=== PATIENT | female | born 1980 | race Asian ===

== ENCOUNTER 2018-11-18 06:13 | Inpatient (IN) | payer BC ==
[~2018-11-18] VITALS: Ht 160 cm; Wt 71.7 kg
[2018-11-18] MEDS ORDERED: LR 1,000 ML IV SCH ×4 (06:22→20:13)
[2018-11-18] MEDS ORDERED: CEFAZOLIN 2 GM IVPB PREMIX 50 ML IV ONE (06:30)
[2018-11-18 06:36] VITALS: BP_SYST 112
[2018-11-18 07:27] LABS: BASOPHILS # (AUTO) 0.1 K/uL (0.0-0.2); BASOPHILS % (AUTO) 0.8 % (0.0-2.0); EOSINOPHILS # (AUTO) 0.1 K/uL (0.0-0.4); HEMATOCRIT 34.6 % (36-48); HEMOGLOBIN 11.6 g/dL (12.0-16.0); LYMPHOCYTES # (AUTO) 2.1 K/uL (1.0-5.5); LYMPHOCYTES % (AUTO) 28.5 % (20.5-51.5); MEAN CORPUSCULAR HEMOGLOBIN 30 pg (27-31); MEAN CORPUSCULAR HGB CONC 34 % (32-36); MEAN CORPUSCULAR VOLUME 89 fL (79.0-98.0); MONOCYTES # (AUTO) 0.6 K/uL (0.0-1.0); MONOCYTES % (AUTO) 7.9 % (1.7-9.3); NEUTROPHILS # (AUTO) 4.4 K/uL (1.8-7.7); NEUTROPHILS % (AUTO) 60.8 % (40.0-70.0); PLATELET COUNT (AUTO) 237 K/uL (130-430); RED BLOOD CELL COUNT(AUTO) 3.89 MIL/uL (4.2-6.2); RED CELL DISTRIBUTION WIDTH 12.6 % (9.0-15.0); WHITE BLOOD COUNT (AUTO) 7.3 K/uL (4.8-10.8)
[2018-11-18 08:15] LABS: BILIRUBIN,URINE NEGATIVE (NEGATIVE); BLOOD, URINE NEGATIVE (NEGATIVE); CLARITY/URINE CLEAR (CLEAR); COLOR,URINE YELLOW (YELLOW); GLUCOSE,URINE NEGATIVE (NEGATIVE); KETONES,URINE TRACE (NEGATIVE); LEUKOCYTE ESTERASE ,URINE NEGATIVE (NEGATIVE); NITRITE, URINE NEGATIVE (NEGATIVE); PH,URINE 6.5 (5.0-8.0); PROTEIN URINE NEGATIVE (NEGATIVE); UROBILINOGEN,URINE 0.2 (0.2-1.0)
[2018-11-18] MEDS ORDERED: MEPERIDINE HCL/PF 50 MG/ML AMP IVP PRN ×2 (08:30)
[2018-11-18] MEDS ORDERED: MORPHINE SULFATE 10MG/10ML PF AMP SP SCH (08:30)
[2018-11-18] MEDS ORDERED: MEPERIDINE HCL/PF 25 MG/ML DISP.SYRIN IVP PRN (08:30)
[2018-11-18] MEDS ORDERED: NALOXONE HCL 0.4 MG/ML AMP (NARCAN) IVP PRN (08:30)
[2018-11-18] MEDS ORDERED: ONDANSETRON HCL 4 MG/2 ML VIAL IVP PRN (08:30)
[2018-11-18] MEDS ORDERED: METOCLOPRAMIDE HCL 10 MG/2 ML VIAL IVP PRN (08:30)
[2018-11-18] MEDS ORDERED: LR 1,000 ML IV.SOLN IV ONE (08:55)
[2018-11-18] MEDS ORDERED: OXYTOCIN 10 UNIT/ML VIAL ONE ×3 (08:55→20:03)
[2018-11-18] MEDS ORDERED: NS IRRIG SOLN 1000 ML IR ONE (08:55)
[2018-11-18] MEDS ORDERED: ePHEDrine sulfate 50 MG/ML VIAL ONE (08:55)
[2018-11-18] MEDS ORDERED: MIDAZOLAM HCL 5 MG/ML VIAL (VERSED) IV ONE (08:55)
[2018-11-18] MEDS ORDERED: OXYTOCIN/0.9 % SODIUM CHLORIDE 1,000 ML IV ONE ×3 (08:56→21:00)
[2018-11-18] MEDS ORDERED: MEASLES,MUMPS&RUBELLA VACC/PF 12500 UNIT/0.5 ML VIAL SUBQ PRN (09:00)
[2018-11-18] MEDS ORDERED: DIPH-TET-PERTUS Vaccine 0.5 ML VIAL (ADACEL) I.M. PRN (09:00)
[2018-11-18] MEDS ORDERED: ANUSOL 1 EA SUPP.RECT (PREPARATION H) RC PRN (09:00)
[2018-11-18] MEDS ORDERED: BISACODYL 10 MG/SUPPOSITORY RC PRN (09:00)
[2018-11-18] MEDS ORDERED: LANOLIN 7 GM OINT. TP PRN ×2 (09:00→20:15)
[2018-11-18] MEDS ORDERED: RHO(D) IMMUNE GLOBULIN/MALTOSE 1500 UNITS/1.3 ML (WINHRO) IM PRN (09:00)
[2018-11-18 09:29] VITALS: BP_SYST 105
[2018-11-18] MEDS ORDERED: HYDROcodone/ACETAMIN 5-325 MG TAB (NORCO/ VICODIN) PO PRN (12:00)
[2018-11-18] MEDS: CEFAZOLIN 1 GM IVPB PREMIX 50 ML IV SCH ×3 (12:11→23:53)
[2018-11-18] MEDS ORDERED: TEMAZEPAM 15 MG CAPSULE PO PRN (21:00)
[2018-11-18] MEDS: SIMETHICONE 80 MG TAB.CHEW PO PRN (23:55)
[2018-11-19] MEDS: IBUPROFEN 600 MG TABLET PO SCH (00:15)
[2018-11-19] MEDS: OXYCODONE/ACETAMINOPHEN 5-325 TABLET PO PRN ×4 (04:16→22:55)
[2018-11-19] MEDS: SIMETHICONE 80 MG TAB.CHEW PO PRN ×3 (04:16→22:55)
[2018-11-19] MEDS ORDERED: OXYTOCIN 10 UNIT/ML VIAL ONE (04:16)
[2018-11-19 06:58] LABS: BASOPHILS % (AUTO) 0.3 % (0.0-2.0); EOSINOPHILS # (AUTO) 0.2 K/uL (0.0-0.4); HEMATOCRIT 28.1 % (36-48); HEMOGLOBIN 9.5 g/dL (12.0-16.0); LYMPHOCYTES # (AUTO) 1.8 K/uL (1.0-5.5); LYMPHOCYTES % (AUTO) 15.3 % (20.5-51.5); MEAN CORPUSCULAR HEMOGLOBIN 30 pg (27-31); MEAN CORPUSCULAR HGB CONC 34 % (32-36); MEAN CORPUSCULAR VOLUME 88 fL (79.0-98.0); MONOCYTES % (AUTO) 8.4 % (1.7-9.3); NEUTROPHILS # (AUTO) 8.9 K/uL (1.8-7.7); PLATELET COUNT (AUTO) 211 K/uL (130-430); RED BLOOD CELL COUNT(AUTO) 3.19 MIL/uL (4.2-6.2); RED CELL DISTRIBUTION WIDTH 12.4 % (9.0-15.0); WHITE BLOOD COUNT (AUTO) 11.9 K/uL (4.8-10.8)
[2018-11-19] MEDS: SENNOSIDES/DOCUSATE SODIUM 1 TAB TABLET(SENOKOT-S) PO PRN ×2 (11:35→22:55)
[2018-11-19] MEDS: DOCUSATE SODIUM 100 MG CAPSULE PO PRN ×2 (11:36→22:55)
[2018-11-20] MEDS: OXYCODONE/ACETAMINOPHEN 5-325 TABLET PO PRN ×2 (04:49→15:25)
[2018-11-20] MEDS: SIMETHICONE 80 MG TAB.CHEW PO PRN (04:50)
[2018-11-20] MEDS ORDERED: HYDROCORTISONE 0.5%, 28.35 GM TOPICAL CREAM TP PRN (07:30)
[2018-11-20] MEDS: IBUPROFEN 600 MG TABLET PO SCH (12:11)
[2018-11-21] MEDS: IBUPROFEN 600 MG TABLET PO SCH ×2 (00:04→06:29)
[2018-11-21] MEDS: DOCUSATE SODIUM 100 MG CAPSULE PO PRN (00:04)
[2018-11-21] MEDS: OXYCODONE/ACETAMINOPHEN 5-325 TABLET PO PRN (07:52)
== END 2018-11-21 11:40 | disposition home or self-care (01) | DRG 785 ==
LOC: SPU 06:13
PROVIDERS: ADMIT Specialist; ATTEND Specialist
PROC: 0UT70ZZ Resection of Bilateral Fallopian Tubes, Open Approach (ICD-10-PCS; 2018-11-18)
PROC: 10D00Z1 Extraction of Products of Conception, Low, Open Approach (ICD-10-PCS; principal; 2018-11-18 07:30)
DX: O34.211 Maternal care for low transverse scar from previous cesarean delivery (principal); O62.2 Other uterine inertia; Z37.0 Single live birth; Z3A.38 38 weeks gestation of pregnancy; Z30.2 Encounter for sterilization
CPT/HCPCS: 36415; 81003; 85025; 86592; 86886; 86900; 86901; 88302; 90656; 90715; A4618; J0690; J2250; J2274; J2590; J7120

== ENCOUNTER 2018-11-25 08:21 | Inpatient (IN) | payer BC ==
[2018-11-25] VITALS (12 sets, daily range): BP systolic 99–125
[~2018-11-25] VITALS: Ht 160 cm; Wt 60.8 kg
--- NOTE | 2018-11-25 08:21 | NUR ---
BROUGHT BACK TO BED #5 AND TRIAGED. REPORT GIVEN TO JOHN
--- NOTE | 2018-11-25 08:30 | NUR ---
Note undone in EDM - 11/25/18 at 0908 by [email or web address] patient is Jesus arriving from home with at bedside. patient states she has had vaginal bleeding post that has progressively gotten worse. patient states she has saturated a menstral pad every hour for the past 24 hours. upon assessment, patients fundus is at the umbilicus. patient is 3 days. patient states she has not done a fundal message or used an abd binder of any kind. no other complaint or injury at this time.
--- NOTE | 2018-11-25 08:30 | NUR ---
patient is AOx4 arriving from home with at bedside. patient states she has had vaginal bleeding post that has progressively gotten worse. patient states she has saturated a menstral pad every hour for the past 24 hours. upon assessment, patients fundus is at the umbilicus. patient is 3 days. patient states she has not done a fundal massage or used an abd binder of any kind. no other complaint or injury at this time.
--- NOTE | 2018-11-25 08:30 | NUR ---
ER at bedside examining patient.
--- NOTE | 2018-11-25 08:58 | NUR ---
patient in stable condition sent to ultrasound.
[2018-11-25] MEDS ORDERED: OXYTOCIN/0.9 % SODIUM CHLORIDE 1,000 ML IV SCH ×2 (09:00→09:30)
--- NOTE | 2018-11-25 09:12 | NUR ---
spoke to joselin mendoza regarding PIT dosage.
[2018-11-25 09:29] LABS: CALCIUM 8.6 mg/dL (8.4-11.0); CREATININE 0.62 mg/dL (0.55-1.30); POTASSIUM 3.4 mmol/L (3.5-5.1); TOTAL BILIRUBIN 0.7 mg/dL (0.0-1.0)
[2018-11-25 09:30] LABS: ALBUMIN 2.8 g/dL (3.4-4.8)
--- NOTE | 2018-11-25 09:30 | NUR ---
patient returned from ultrasound in stable condition.
--- NOTE | 2018-11-25 09:35 | NUR ---
OR staff nurse made aware of 6.8 low hemoglobin that was reported to MD Roberts.
--- NOTE | 2018-11-25 09:35 | NUR ---
# 20 gauge angiocath placed to RAC. Use of asceptic technique. Opsite placed over site. Blood return noted. Flushed with 10 cc of normal saline. No evidence of infiltration noted. Patient tolerated well.
--- NOTE | 2018-11-25 09:35 | NUR ---
ER at bedside examining patient.
[2018-11-25 09:36] LABS: INR 1.3 (0.8-1.2); PROTHROMBIN TIME 13.3 SECS (9.5-12.5)
[2018-11-25 09:40] LABS: RED BLOOD CELL COUNT(AUTO) 2.34 MIL/uL (4.2-6.2); WHITE BLOOD COUNT (AUTO) 9.6 K/uL (4.8-10.8)
--- NOTE | 2018-11-25 09:43 | NUR ---
Patient will be admitted to care of MD Vogt. Admitted to Outpatient Surgery unit. Will go to room OR. Belongings list completed. Summary report printed. Report will be given at bedside.
[2018-11-25] MEDS ORDERED: fentaNYL CITRATE/PF 100 MCG/2 ML AMP IVP PRN (09:45)
[2018-11-25] MEDS ORDERED: ONDANSETRON HCL 4 MG/2 ML VIAL IVP PRN ×2 (09:45→15:00)
[2018-11-25 09:48] LABS: HEMATOCRIT 20.9 % (36-48); HEMOGLOBIN 6.8 g/dL (12.0-16.0); MEAN CORPUSCULAR VOLUME 90 fL (79.0-98.0)
[2018-11-25 09:49] LABS: BASOPHILS % (AUTO) 0.5 % (0.0-2.0); EOSINOPHILS # (AUTO) 0.3 K/uL (0.0-0.4); EOSINOPHILS % (AUTO) 3.5 % (0.0-4.0); LYMPHOCYTES # (AUTO) 1.4 K/uL (1.0-5.5); LYMPHOCYTES % (AUTO) 14.1 % (20.5-51.5); MEAN CORPUSCULAR HEMOGLOBIN 29 pg (27-31); MEAN CORPUSCULAR HGB CONC 33 % (32-36); MONOCYTES # (AUTO) 0.5 K/uL (0.0-1.0); MONOCYTES % (AUTO) 4.7 % (1.7-9.3); NEUTROPHILS # (AUTO) 7.4 K/uL (1.8-7.7); NEUTROPHILS % (AUTO) 77.2 % (40.0-70.0); PLATELET COUNT (AUTO) 308 K/uL (130-430); RED CELL DISTRIBUTION WIDTH 12.6 % (9.0-15.0)
[2018-11-25] MEDS ORDERED: fentaNYL CITRATE 250 MCG/5 ML AMP IV ONE (09:51)
[2018-11-25] MEDS ORDERED: GLYCOPYRROLATE 0.2 MG/ML VIAL IJ ONE (09:51)
[2018-11-25] MEDS ORDERED: ETOMIDATE 20 MG/ 10 ML VIAL (AMIDATE) IVP ONE (09:51)
[2018-11-25] MEDS ORDERED: NS IRRIG SOLN 1000 ML IR ONE (09:51)
[2018-11-25] MEDS ORDERED: MIDAZOLAM HCL 5 MG/5 ML VIAL IVP ONE (09:51)
[2018-11-25] MEDS ORDERED: LR 1,000 ML IV.SOLN IV ONE (09:51)
[2018-11-25] MEDS ORDERED: METHYLERGONOVINE MALEATE 0.2 MG/ML AMP IM ONE (09:51)
[2018-11-25] MEDS ORDERED: GLUCAGON,HUMAN RECOMBINANT 1 MG VIAL IV ONE (09:51)
[2018-11-25] MEDS ORDERED: NEOSTIGMINE METHYLSULFATE 1 MG/ML, 10 ML VIAL IVP ONE (09:51)
[2018-11-25] MEDS ORDERED: OXYTOCIN 10 UNIT/ML VIAL IV ONE (09:51)
[2018-11-25] MEDS ORDERED: SEVOFLURANE 15 MIN GAS INH ONE (09:51)
[2018-11-25] MEDS ORDERED: NS 1000 ML IV.SOLN IV ONE (09:51)
[2018-11-25] MEDS ORDERED: HETASTARCH/NORMAL SALINE 500 ML IV.SOLN (heSPAN 6%) IV ONE (09:51)
[2018-11-25] MEDS ORDERED: HEMABATE 250MCG/ML VIAL AMP IM ONE (09:51)
[2018-11-25 11:48] LABS: HEMOGLOBIN 6.6 g/dL (12.0-16.0)
[2018-11-25 11:49] LABS: HEMATOCRIT 19.4 % (36-48)
[2018-11-25 12:23] LABS: INR 2.4 (0.8-1.2)
[2018-11-25 12:24] LABS: PROTHROMBIN TIME 23.7 SECS (9.5-12.5)
[2018-11-25] MEDS: fentaNYL CITRATE/PF 100 MCG/2 ML AMP IVP PRN ×2 (13:00→13:10)
[2018-11-25] MEDS ORDERED: fentaNYL CITRATE/PF 100 MCG/2 ML AMP ONE (13:01)
[2018-11-25] MEDS ORDERED: FUROSEMIDE 20 MG/2 ML VIAL IVP ONE (13:15)
[2018-11-25] MEDS ORDERED: FUROSEMIDE 40 MG/4 ML VIAL ONE (13:21)
--- NOTE | 2018-11-25 14:17 | NUR ---
Received pt to ICU bed 2 from recovery with RN in attendance. Report given by RR staff to Noemi RN at bedside. BP 97/62, HR 99 RR 20 and 02 sats 99%. Pt sleepy but arousable. No active bleeding noted to abd dressing and binder in place. TABITHA drain with small amount of blood in it.
--- NOTE | 2018-11-25 14:44 | NUR ---
Call out to Dr. Christensen regarding consult. Dr. Vogt would like to speak to him and has been waiting for a call back. Dr. hCristensen's office to put out a stat page to call Dr. Vogt.
--- NOTE | 2018-11-25 14:53 | NUR ---
BT INITIATION: FFP Consent signed per patient agreeing to administration of blood. Blood has been type and crossmatched. Blood sent from blood bank. Information on unit of blood checked against patient wristband at bedside by two nurses. All information matches. Patient or responsible alliance party informed of potential complications associated with blood transfusion. Informed of possible transfusion reaction symptoms. Aware of need to notify nurse at once of itching, shortness of breath, flushing, feeling of impending doom, or other symptoms not previously present. Vital signs taken within 5 minutes prior to initiation of transfusion. RN will remain with patient for first 15 minutes of transfusion at which time vital signs will be re-assessed. Patient is receiving 3rd unit of FFP.
--- NOTE | 2018-11-25 14:55 | NUR ---
Dr Christensen returned call and informed of the consult. He is aware Dr. Vogt would like to speak with him, however he is not in surgery anymore and he is not returning his over head page.
[2018-11-25] MEDS ORDERED: HYDROmorphone 2 MG/ML VIAL IVP PRN ×4 (15:00→18:00)
--- NOTE | 2018-11-25 15:08 | NUR ---
15 minutes after transfusion initiation: pt states no pain or distress VS: BP 102/64, P 99, R 18, T 98.6.
[2018-11-25] MEDS: HYDROmorphone 2 MG/ML VIAL IVP PRN ×4 (15:20→21:37)
--- NOTE | 2018-11-25 16:10 | NUR ---
4th unit of FFP being administered at this time, verified with Kristina MCNULTY. Pt states no pain or distress.
--- NOTE | 2018-11-25 16:15 | NUR ---
FFP 4th unit done transfusing Addendum: 11/25/18 at 1943 by Noemi Shore RN CORRECTION: 3rd unit FFP done transfusing
--- NOTE | 2018-11-25 16:30 | NUR ---
Call out to Dr. Christensen regarding labs.
[2018-11-25] MEDS: D5LR 1,000 ML IV SCH (17:17)
[2018-11-25] MEDS ORDERED: CEFAZOLIN 1 GM IVPB PREMIX 50 ML IV ONE (18:00)
--- NOTE | 2018-11-25 18:04 | NUR ---
1st bag of Cryo (5 units pooled) transfusing, verified with Kristina RN.
[2018-11-25] MEDS ORDERED: ACETAMINOPHEN 325 MG TABLET ONE (18:29)
[2018-11-25] MEDS ORDERED: ACETAMINOPHEN 325 MG TABLET PO PRN (18:30)
--- NOTE | 2018-11-25 18:30 | NUR ---
Call out to Dr. Christensen for labs and fever during blood transfusion.
--- NOTE | 2018-11-25 18:35 | NUR ---
Called Dr. Vogt to report temp 102 temporal but oral 99.9 prior to start of cryopreciptate. Tylenol ordered and given by bedside RN. Pt denies, hives, itching, rash, chills. VSS. Pt resting with family at bedside.
--- NOTE | 2018-11-25 19:20 | NUR ---
Still no call back from Dr. Christensen.
--- NOTE | 2018-11-25 19:21 | NUR ---
Endorsed plan of care to Nelli MCNULTY via SBAR tool and bedside round. Pt states no distress at this time. Addendum: 11/25/18 at 1922 by Noemi Shore RN 1st bag of cryo. 5 units pooled still infusing.
--- NOTE | 2018-11-25 19:30 | NUR ---
PM ASSESSMENT REPORT RECEIVED FROM DEMARIO MCNULTY. PT RECEIVED IN BED WITH EYES OPEN, AAOX4 AND ABLE TO VERBALIZE NEEDS. FAMILY AT BEDSIDE. VSS, NO S/S OF ACUTE DISTRESS NOTED. PT ON RA. ST ON MONITOR. LAC 18G INFUSING CRYOPRECIPITATE @ 70 CC/HR, RAC 20G INFUSING D5LR @ 100 CC/HR, R WRIST 18G TO SL, PATENT AND INTACT. ABD INCISION NOTED WITH ABD BINDER IN PLACE. TABITHA DRAIN IN PLACE DRAINING BURGUNDY FLUID. ROMERO CATH IN PLACE DRAINING YELLOW URINE TO GRAVITY. SCDS IN PLACE. PT STATES THAT "PAIN IS STARTING TO CREEP UP AGAIN", WILL MEDICATE PER ORDERS. HOB ELEVATED, BED IN LOWEST POSITION, CALL LIGHT IN REACH. WILL CONTINUE TO MONITOR PT.
--- NOTE | 2018-11-25 20:36 | NUR ---
MD ROUNDS DR. BARTON AT BEDSIDE TO EVALUATE PT. ORDERS RECEIVED AND WILL BE CARRIED OUT ORDERED.
--- NOTE | 2018-11-25 20:55 | NUR ---
CRYOPRECIPITATE 2ND BAG OF CRYOPREIPITATE (5 UNITS POOLED) INFUSING AT THIS TIME. NO S/S OF TRANSFUSION REACTION NOTED. WILL CONTINUE TO MONITOR PT.
[2018-11-25] MEDS: SIMETHICONE 80 MG TAB.CHEW PO SCH (21:07)
[2018-11-25] MEDS: CEFAZOLIN 1 GM IVPB PREMIX 50 ML IV SCH (21:08)
[2018-11-26] VITALS (23 sets, daily range): BP systolic 101–135
--- NOTE | 2018-11-26 00:22 | NUR ---
RN ROUNDS PT RESTING COMFORTABLY IN BED AND USING BREAST PUMP AT THIS TIME. PT MEDICATED FOR PAIN PER ORDERS. NO S/S OF MEDICATION REACTION NOTED. VSS, NO S/S OF ACUTE DISTRESS NOTED. NO S/S OF BLEEDING NOTED. MOTHER REMAINS AT BEDSIDE. NO OTHER NEEDS VERBALIZE PER PT AT THIS TIME. WILL CONTINUE TO MONITOR. WILL CONTINUE TO MONITOR PT.
[2018-11-26] MEDS: HYDROmorphone 2 MG/ML VIAL IVP PRN ×5 (01:54→08:15)
[2018-11-26] MEDS: D5LR 1,000 ML IV SCH (03:55)
--- NOTE | 2018-11-26 04:00 | NUR ---
RN ROUNDS PT C/O PAIN IN ABD AND GIVEN DILAUDID 2MG PER ORDERS AT THIS TIME. HARSHIL PAD CHECKED AND FOUND TO HAVE SMALL AMOUNT OF BLOOD SATURATION. HARSHIL CARE DONE, HARSHIL PAD AND CHUX PAD CHANGED AT THIS TIME. PT TEMP 100.2, COOLING MEASURES REAPPLIED. NO OTHER NEEDS VERBALIZED PER PT. WILL CONTINUE TO MONITOR.
[2018-11-26 05:50] LABS: RED BLOOD CELL COUNT(AUTO) 2.33 MIL/uL (4.2-6.2); WHITE BLOOD COUNT (AUTO) 12.3 K/uL (4.8-10.8)
[2018-11-26 05:53] LABS: HEMOGLOBIN 6.7 g/dL (12.0-16.0); POTASSIUM 3.2 mmol/L (3.5-5.1)
[2018-11-26 05:54] LABS: CREATININE 0.63 mg/dL (0.55-1.30); EOSINOPHILS % (AUTO) 2.2 % (0.0-4.0); HEMATOCRIT 19.7 % (36-48); LYMPHOCYTES % (AUTO) 11.7 % (20.5-51.5); MEAN CORPUSCULAR HEMOGLOBIN 29 pg (27-31); MEAN CORPUSCULAR HGB CONC 34 % (32-36); MEAN CORPUSCULAR VOLUME 85 fL (79.0-98.0); MONOCYTES % (AUTO) 7.3 % (1.7-9.3); NEUTROPHILS % (AUTO) 78.7 % (40.0-70.0); PLATELET COUNT (AUTO) 209 K/uL (130-430); RED CELL DISTRIBUTION WIDTH 14.7 % (9.0-15.0)
[2018-11-26 05:55] LABS: BASOPHILS % (AUTO) 0.1 % (0.0-2.0); EOSINOPHILS # (AUTO) 0.3 K/uL (0.0-0.4); LYMPHOCYTES # (AUTO) 1.4 K/uL (1.0-5.5); MONOCYTES # (AUTO) 0.9 K/uL (0.0-1.0); NEUTROPHILS # (AUTO) 9.7 K/uL (1.8-7.7)
[2018-11-26] MEDS: CEFAZOLIN 1 GM IVPB PREMIX 50 ML IV SCH ×3 (05:56→21:36)
[2018-11-26 05:59] LABS: TOTAL BILIRUBIN 0.9 mg/dL (0.0-1.0)
[2018-11-26 06:14] LABS: PROTHROMBIN TIME 10.4 SECS (9.5-12.5)
--- NOTE | 2018-11-26 06:20 | NUR ---
MD CALL DR. OG CALLED UNIT REQUESTING UPDATES ON PT. PT UPDATES PROVIDED AND MD MADE AWARE OF HGB/HCT 6.7/19.7. ORDERS RECEIVED AND WILL BE CARRIED OUT ORDERED.
[2018-11-26] MEDS ORDERED: FUROSEMIDE 20 MG/2 ML VIAL IVP ONE ×2 (06:30→07:45)
--- NOTE | 2018-11-26 07:02 | NUR ---
[address]ND PAGE TO DR. BARTON 2ND PAGE OUT TO DR. BARTON. SPOKE WITH SHANT AT THE EXCHANGE.
--- NOTE | 2018-11-26 07:25 | NUR ---
ENDORSEMENT BEDSIDE REPORT GIVEN TO DEMARIO/TRUDI MCNULTY USING SBAR APPROACH.
--- NOTE | 2018-11-26 07:25 | NUR ---
Opening Note Received bedside report from Nelli MCNULTY using SBAR approach.
--- NOTE | 2018-11-26 07:35 | NUR ---
Dr. Christensen return call, new orders made and carried out.
[2018-11-26] MEDS: SIMETHICONE 80 MG TAB.CHEW PO SCH ×4 (08:12→21:35)
--- NOTE | 2018-11-26 08:40 | NUR ---
Dr. Vogt in to see pt. No new orders.
--- NOTE | 2018-11-26 09:30 | NUR ---
Dr. Vogt at bedside examining pt. New orders made and carried out.
--- NOTE | 2018-11-26 09:45 | NUR ---
Dr. Christensen at bedside examining pt.
[2018-11-26] MEDS ORDERED: KCL 10 mEq in 50 mL (PREMIX) 50 ML IV ONE (10:00)
[2018-11-26] MEDS ORDERED: CALCIUM CHLORIDE 1 GM in NS 100 ML IV ONE (10:00)
--- NOTE | 2018-11-26 10:27 | NUR ---
1st unit of PRBC infusing at this time, verified with Noemi MCNULTY. No s/s of transfusion reaction noted. Pt. states no pain or distress. Pt. tolerating well.
[2018-11-26] MEDS: KCL 20 mEq in 0.45% NS 1000 mL 1,000 ML IV SCH (10:46)
--- NOTE | 2018-11-26 10:50 | NUR ---
Order Clarification Spoke to Dr. Votg regarding dilaudid orders clarification and that pt states "I'm fine with 1 mg." New orders made and carried out.
[2018-11-26] MEDS ORDERED: ACETAMINOPHEN 325 MG TABLET PO PRN (11:00)
--- NOTE | 2018-11-26 11:12 | NUR ---
Nutrition Update Cullen Scale 17 noted. Pt admitted for bleeding. Diet: full liquid BMI: 28 kg/m2 RD to follow per nutrition care standards.
--- NOTE | 2018-11-26 12:30 | NUR ---
Pt. assisted to dangle feet at bedside to eat lunch. Pt. tolerated well.
[2018-11-26] MEDS: OXYCODONE/ACETAMINOPHEN 5-325 TABLET PO PRN ×2 (13:24→21:57)
--- NOTE | 2018-11-26 13:36 | NUR ---
1st unit of PRBC finished transfusing. No s/s of transfusion reaction noted. Pt. tolerated well.
[2018-11-26] MEDS: HYDROmorphone 1 MG INJ. 1 MG/ML AMPUL IVP PRN ×2 (13:55→19:58)
[2018-11-26] MEDS: POTASSIUM CHLORIDE 20 MEQ TAB.PRT.SR PO SCH ×2 (14:11→21:35)
--- NOTE | 2018-11-26 14:35 | NUR ---
CHG bath self-administered by pt with minimal assist. Pt also assisted to side of bed with feet dangling. Demonstrated use of IS and had cough.
--- NOTE | 2018-11-26 15:54 | NUR ---
2nd unit of PRBC infusing at this time. Verified with Noemi MCNULTY. No s/s of transfusion reaction noted. Pt. tolerating well.
--- NOTE | 2018-11-26 17:45 | NUR ---
IV catheter tip seen outside of pt. left AC. Removed IV from left AC. Catheter tip intact, bleeding controlled.
--- NOTE | 2018-11-26 19:10 | NUR ---
Endorsement/Closing Note Endorsed bedside report to Alyssia MCNULTY using SBAR approach for continuation of care.
--- NOTE | 2018-11-26 19:15 | NUR ---
OPENING NOTE Patient received from am nurse Noemi/Laura. Report given. Patient awake,alert and oriented and talking to family members at bedside. VS WNL. No sign of acute distress noted. Safety precaution in place. Call light within reach. Will continue to monitor.
[2018-11-26 20:54] LABS: BASOPHILS % (AUTO) 0.1 % (0.0-2.0); EOSINOPHILS # (AUTO) 0.5 K/uL (0.0-0.4); EOSINOPHILS % (AUTO) 2.8 % (0.0-4.0); HEMATOCRIT 29.3 % (36-48); LYMPHOCYTES # (AUTO) 2.1 K/uL (1.0-5.5); LYMPHOCYTES % (AUTO) 11.9 % (20.5-51.5); MEAN CORPUSCULAR HEMOGLOBIN 29 pg (27-31); MEAN CORPUSCULAR HGB CONC 34 % (32-36); MEAN CORPUSCULAR VOLUME 84 fL (79.0-98.0); MONOCYTES # (AUTO) 1.2 K/uL (0.0-1.0); NEUTROPHILS # (AUTO) 14.1 K/uL (1.8-7.7); NEUTROPHILS % (AUTO) 78.2 % (40.0-70.0); PLATELET COUNT (AUTO) 230 K/uL (130-430); RED BLOOD CELL COUNT(AUTO) 3.49 MIL/uL (4.2-6.2); WHITE BLOOD COUNT (AUTO) 17.9 K/uL (4.8-10.8)
--- NOTE | 2018-11-26 21:25 | NUR ---
RN UPDATE Patient in bed talking to her mother. No sign of distress noted at this time. Safety precautions in place. Call light within reach. Will continue to monitor.
[2018-11-26 22:47] LABS: ALBUMIN 2.2 g/dL (3.4-4.8); CALCIUM 8.4 mg/dL (8.4-11.0); CREATININE 0.66 mg/dL (0.55-1.30); POTASSIUM 3.2 mmol/L (3.5-5.1)
[2018-11-26 23:05] LABS: TOTAL BILIRUBIN 1.5 mg/dL (0.0-1.0)
--- NOTE | 2018-11-26 23:32 | NUR ---
Dr. Christensen Paged Dr. Christensen and informed him about patient's latest H&H and CMP results s/p transfusion. Dr. Christensen now aware of Lab values cesar. Hgb,Hct, K+,Ca+, Na+ and WBC. Dr. Christensen said he will come to see patient tomorrow. No new orders given.
[2018-11-27] VITALS (14 sets, daily range): BP systolic 96–127
[2018-11-27] MEDS: HYDROmorphone 1 MG INJ. 1 MG/ML AMPUL IVP PRN ×4 (00:06→13:40)
[2018-11-27] MEDS: KCL 20 mEq in 0.45% NS 1000 mL 1,000 ML IV SCH (05:58)
[2018-11-27] MEDS: CEFAZOLIN 1 GM IVPB PREMIX 50 ML IV SCH ×2 (05:58→14:18)
--- NOTE | 2018-11-27 06:25 | NUR ---
CLOSING NOTE Patient awake,alert and oriented. Mother at bedside. VS stable. No sign of acute distress noted at this time. Patient with intermittent pain throughout the shift but managed with PRN Dilaudid. Lombardi intact and draining yellow-orange urine. TABITHA drain on left side of abdomen intact. Safety precaution in place. Call light within reach.
[2018-11-27 06:50] LABS: BASOPHILS % (AUTO) 0.2 % (0.0-2.0); EOSINOPHILS # (AUTO) 0.4 K/uL (0.0-0.4); EOSINOPHILS % (AUTO) 2.8 % (0.0-4.0); HEMATOCRIT 26.6 % (36-48); HEMOGLOBIN 8.9 g/dL (12.0-16.0); LYMPHOCYTES # (AUTO) 1.9 K/uL (1.0-5.5); LYMPHOCYTES % (AUTO) 12.4 % (20.5-51.5); MEAN CORPUSCULAR HEMOGLOBIN 28 pg (27-31); MEAN CORPUSCULAR HGB CONC 33 % (32-36); MEAN CORPUSCULAR VOLUME 85 fL (79.0-98.0); MONOCYTES % (AUTO) 6.5 % (1.7-9.3); NEUTROPHILS # (AUTO) 11.8 K/uL (1.8-7.7); NEUTROPHILS % (AUTO) 78.1 % (40.0-70.0); PLATELET COUNT (AUTO) 233 K/uL (130-430); RED BLOOD CELL COUNT(AUTO) 3.15 MIL/uL (4.2-6.2); RED CELL DISTRIBUTION WIDTH 14.2 % (9.0-15.0); WHITE BLOOD COUNT (AUTO) 15.1 K/uL (4.8-10.8)
[2018-11-27 07:02] LABS: CALCIUM 8.1 mg/dL (8.4-11.0); CREATININE 0.66 mg/dL (0.55-1.30); POTASSIUM 3.7 mmol/L (3.5-5.1)
[2018-11-27 07:07] LABS: ALBUMIN 2.1 g/dL (3.4-4.8)
--- NOTE | 2018-11-27 07:15 | NUR ---
AM ASSESSMENT Pt received laying in bed with eyes closed. Pt is easily awaken to verbal stimuli. Pt has a kelley cath draining yellow urine to gravity. Bi-lateral SCD's that pt is requesting to have off at this time. There is a TABITHA drain from pts right lower quad of abd set to negative pressure. Pt is connected to 1L via NC with oxygen saturation at 98%. No signs of acute distress will continue to monitor.
[2018-11-27] MEDS: OXYCODONE/ACETAMINOPHEN 5-325 TABLET PO PRN ×4 (07:47→21:31)
[2018-11-27 08:22] LABS: PROTHROMBIN TIME 9.9 SECS (9.5-12.5)
[2018-11-27] MEDS: POTASSIUM CHLORIDE 20 MEQ TAB.PRT.SR PO SCH (08:32)
[2018-11-27] MEDS: SIMETHICONE 80 MG TAB.CHEW PO SCH ×4 (08:33→21:15)
--- NOTE | 2018-11-27 11:01 | NUR ---
MD Dr. Billingsley called and was informed of pt's current condition, ordered for pt to be transferred to OB.
--- NOTE | 2018-11-27 15:15 | NUR ---
Transfer Pt transferred to OB room 8. Report given to Alicia MCNULTY. No signs of acute distress or complaints of injury. No signs of an active bleed. All items in room transferred with pt.
[2018-11-27] MEDS: DOCUSATE SODIUM 100 MG CAPSULE PO PRN (17:35)
[2018-11-27] MEDS: FERROUS SULFATE 325 MG TABLET.DR PO SCH (17:54)
[2018-11-27] MEDS ORDERED: POTASSIUM CHLORIDE 20 MEQ TAB.PRT.SR PO ONE (21:00)
[2018-11-28] MEDS: OXYCODONE/ACETAMINOPHEN 5-325 TABLET PO PRN ×4 (00:45→12:32)
[2018-11-28] MEDS: DOCUSATE SODIUM 100 MG CAPSULE PO PRN ×2 (04:33→16:29)
[2018-11-28 07:24] LABS: BASOPHILS % (AUTO) 0.3 % (0.0-2.0); EOSINOPHILS # (AUTO) 0.6 K/uL (0.0-0.4); EOSINOPHILS % (AUTO) 5.2 % (0.0-4.0); HEMATOCRIT 27.1 % (36-48); LYMPHOCYTES # (AUTO) 1.8 K/uL (1.0-5.5); MEAN CORPUSCULAR HEMOGLOBIN 29 pg (27-31); MEAN CORPUSCULAR HGB CONC 33 % (32-36); MEAN CORPUSCULAR VOLUME 86 fL (79.0-98.0); MONOCYTES # (AUTO) 0.9 K/uL (0.0-1.0); MONOCYTES % (AUTO) 7.3 % (1.7-9.3); NEUTROPHILS # (AUTO) 8.8 K/uL (1.8-7.7); NEUTROPHILS % (AUTO) 72.2 % (40.0-70.0); PLATELET COUNT (AUTO) 315 K/uL (130-430); RED BLOOD CELL COUNT(AUTO) 3.15 MIL/uL (4.2-6.2); RED CELL DISTRIBUTION WIDTH 14.6 % (9.0-15.0); WHITE BLOOD COUNT (AUTO) 12.1 K/uL (4.8-10.8)
[2018-11-28] MEDS ORDERED: HYDROCORTISONE 0.5%, 28.35 GM TOPICAL CREAM TP PRN (07:45)
[2018-11-28] MEDS ORDERED: PHENYLEPH/MINERAL OIL/PETROLAT 45 GM OINT.APPL TP PRN (07:45)
[2018-11-28] MEDS: FERROUS SULFATE 325 MG TABLET.DR PO SCH ×2 (08:32→19:50)
[2018-11-28] MEDS: SIMETHICONE 80 MG TAB.CHEW PO SCH ×4 (08:33→20:35)
[2018-11-28] MEDS ORDERED: HYDROCORTISONE 0.5%, 28.35 GM TOPICAL CREAM TP ONE (17:14)
[2018-11-28] MEDS: oxyCODONE HCL 5 MG TABLET PO PRN (20:36)
[2018-11-29] MEDS: oxyCODONE HCL 5 MG TABLET PO PRN (00:49)
[2018-11-29] MEDS: OXYCODONE/ACETAMINOPHEN 5-325 TABLET PO PRN (05:55)
[2018-11-29 07:14] LABS: BASOPHILS % (AUTO) 0.2 % (0.0-2.0); EOSINOPHILS # (AUTO) 0.5 K/uL (0.0-0.4); EOSINOPHILS % (AUTO) 5.1 % (0.0-4.0); HEMATOCRIT 27.9 % (36-48); HEMOGLOBIN 9.2 g/dL (12.0-16.0); LYMPHOCYTES % (AUTO) 20.1 % (20.5-51.5); MEAN CORPUSCULAR HEMOGLOBIN 28 pg (27-31); MEAN CORPUSCULAR HGB CONC 33 % (32-36); MEAN CORPUSCULAR VOLUME 85 fL (79.0-98.0); MONOCYTES # (AUTO) 0.7 K/uL (0.0-1.0); MONOCYTES % (AUTO) 6.7 % (1.7-9.3); NEUTROPHILS # (AUTO) 6.9 K/uL (1.8-7.7); NEUTROPHILS % (AUTO) 67.9 % (40.0-70.0); PLATELET COUNT (AUTO) 471 K/uL (130-430); RED BLOOD CELL COUNT(AUTO) 3.27 MIL/uL (4.2-6.2); RED CELL DISTRIBUTION WIDTH 14.4 % (9.0-15.0); WHITE BLOOD COUNT (AUTO) 10.1 K/uL (4.8-10.8)
[2018-11-29] MEDS ORDERED: OXYCODONE/ACETAMINOPHEN *10*mg/325 mg TABLET PO PRN (08:00)
[2018-11-29] MEDS: FERROUS SULFATE 325 MG TABLET.DR PO SCH (09:47)
[2018-11-29] MEDS: SIMETHICONE 80 MG TAB.CHEW PO SCH (09:48)
== END 2018-11-29 11:30 | disposition home or self-care (01) | DRG 769 ==
LOC: SED 08:21 → SMU 09:43 → SDS 09:44 → SMU 09:56 → SDS 09:56 → SIC 14:33 → SMU 14:33 → SIC 16:55 → SDS 11-26 15:38 → SIC 11-26 15:42 → UNDOADMIN 11-26 15:42 → SPU 11-27 15:30
PROVIDERS: ADMIT Specialist; ATTEND Specialist
PROC: 0UDB7ZZ Extraction of Endometrium, Via Natural or Artificial Opening (ICD-10-PCS; 2018-11-25)
PROC: 0W3R7ZZ Control Bleeding in Genitourinary Tract, Via Natural or Artificial Opening (ICD-10-PCS; 2018-11-25)
PROC: 0UT90ZZ Resection of Uterus, Open Approach (ICD-10-PCS; 2018-11-25)
PROC: 0UT70ZZ Resection of Bilateral Fallopian Tubes, Open Approach (ICD-10-PCS; 2018-11-25)
PROC: 0TQB0ZZ Repair Bladder, Open Approach (ICD-10-PCS; 2018-11-25)
PROC: 3E0P7VZ Introduction of Hormone into Female Reproductive, Via Natural or Artificial Opening (ICD-10-PCS; 2018-11-25)
PROC: 30233R1 Transfusion of Nonautologous Platelets into Peripheral Vein, Percutaneous Approach (ICD-10-PCS; 2018-11-25)
PROC: 30233K1 Transfusion of Nonautologous Frozen Plasma into Peripheral Vein, Percutaneous Approach (ICD-10-PCS; principal; 2018-11-25 10:00)
PROC: 30233N1 Transfusion of Nonautologous Red Blood Cells into Peripheral Vein, Percutaneous Approach (ICD-10-PCS; 2018-11-25 10:00)
PROC: 30233N1 Transfusion of Nonautologous Red Blood Cells into Peripheral Vein, Percutaneous Approach (ICD-10-PCS; 2018-11-26)
DX: O72.1 Other immediate postpartum hemorrhage (principal); O72.3 Postpartum coagulation defects; O90.81 Anemia of the puerperium; D64.9 Anemia, unspecified; Z90.710 Acquired absence of both cervix and uterus; Z88.0 Allergy status to penicillin; Z88.6 Allergy status to analgesic agent
CPT/HCPCS: 36415; 71045; 76856-TC; 80053; 85018-TC; 85025; 85379; 85384-TC; 85610-TC; 85730-TC; 86886; 86900; 86901; 86920; 87081; 88307; 94010; 99284; C1726; J0690; J1170; J1610; J1940; J2210; J2250; J2405; J2590; J2710; J3010; J3480; J3490; J7030; J7050; J7120; P9012; P9021; P9034; P9059